=== PATIENT | female | born 1940 | race Caucasian/White ===

== ENCOUNTER 2016-05-01 08:56 | Emergency (ER) | payer MEDICARE, OTHER ==
[2016-05-01 09:09] VITALS: TEMP 97.4; BMI 19.9
[2016-05-01] MEDS ORDERED: PREDNISONE 20 MG TAB PO ONE (09:44)
[2016-05-01] MEDS ORDERED: RANITIDINE 150 MG TAB PO ONE (09:44)
[2016-05-01] MEDS ORDERED: OXYCODONE HCL 5 MG TABLET PO ONE (09:44)
--- NOTE | 2016-05-01 09:47 | EDPRACDOC ---
- General Information Chief Complaint: Neck Pain Stated Complaint: NECK PAIN Time Seen by Provider: 05/01/16 09:38 Information Source: Patient Home Medications: Home Medications Albuterol Sulfate [Proair Hfa] 2 puff INH Q6 PRN 09/30/15 Albuterol Sulfate [Ventolin Hfa] 2 puff INH QID PRN 09/30/15 Azelastine HCl [Astelin] 2 spray INTRANASAL QAM PRN 09/30/15 Calcium Carbonate/Vitamin D3 [Caltrate w/ Vit D Tab (600mg/400IU)] 1 tab PO BID 09/30/15 Cholecalciferol (Vitamin D3) [Vitamin D3] 10,000 unit PO DAILY 09/30/15 Donepezil HCl [Aricept] 10 mg PO HS 09/30/15 Glipizide/Metformin HCl [Glipizide-Metformin 2.5-500 mg] 2 tab PO BID 09/30/15 Losartan Potassium [Cozaar] 50 mg PO DAILY 09/30/15 Multivitamin [One Daily Multivitamin] 1 tab PO DAILY 09/30/15 Nitroglycerin [Nitrostat] 1 tab SL Q5MX3 PRN 09/30/15 [place]-3 Fatty Acids/Fish Oil [Fish Oil 1,000 mg Capsule] 1 cap PO DAILY Fluticasone Propionate [Flonase] 1 - 2 spray JOANN DAILY PRN 02/06/16 Rosuvastatin Calcium [Crestor] 5 mg PO DAILY 02/06/16 Sertraline HCl [Zoloft] 25 mg PO DAILY 02/06/16 Aspirin [Aspirin EC] 81 mg PO DAILY 05/01/16 Diazepam [Valium] 5 mg PO TID PRN #15 tablet 05/01/16 Dipyridamole/Aspirin 200/25 [Aggrenox] 1 cap PO BID 05/01/16 Oxycodone HCl/Acetaminophen [Percocet 5-325 mg Tablet] 1 tab PO Q6H PRN #20 tab 05/01/16 Prednisone [Deltasone] 40 mg PO DAILY #10 tablet 05/01/16 Ranitidine [Zantac] 150 mg PO BID #14 tablet 05/01/16 Tiotropium [place] [Spiriva Respimat] 2 puff INH DAILY 05/01/16 Allergies/Adverse Reactions: Allergies Allergy/AdvReac Type Severity Reaction Status Date / Time amoxicillin Allergy Diarrhea Verified 05/01/16 09:09 clopidogrel bisulfate Allergy Unknown Verified 05/01/16 09:09 [From Plavix] moxifloxacin HCl Allergy Unknown Verified 05/01/16 09:09 [From Avelox] tramadol Allergy See Verified 05/01/16 09:09 Comments - History of Present Illness Onset: 3 DAYS HPI: Pt c/o posterior neck pain with limited movement to R x 3 days. Pt c/o indigestion. Denies injury, fever, cough, congestion, sob, abd pain, n/v, rash, swelling. 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 Denies: Cancer Surgical History: Reports: Cardiac Catheterization, Tonsillectomy/Adnoidectomy - Family Medical History Reports: Hypertension (SISTER x2,BROTHER), Diabetes (SISTER x2, BROTHER x2,), Cancer (niece-pancreatic, sister-ovarian and pancreatic). Denies: Stroke ( sister), Cardiac Disorders - Social Medical History Smoking Status: Never smoker ETOH: None Substance Abuse: None EDM Review of Systems - Review of Systems Constitutional: No Symptoms Reported. negative: Fever, Chills, Weakness, Fatigue, Loss of Appetite Ears: No Symptoms Reported. negative: Pain, Hearing Loss, Drainage, Ear Pulling Throat: No Symptoms Reported. negative: Pain, Swelling Nose: No Symptoms Reported. negative: Congestion, Bleeding, Discharge, Injection, Swelling, Deformity, Ecchymosis, Tender, Abrasion, Laceration Mouth: No Symptoms Reported. negative: Pain, Drooling Respiratory: No Symptoms Reported. negative: Cough, Brassy Cough, Barky Cough, Shortness of Breath, Wheezing, Hemoptysis Cardiovascular: Chest Pain Gastrointestinal: No Symptoms Reported. negative: Pain, Constipation, Nausea, Vomiting, Diarrhea, Melena, Formula Intolerance Genitourinary: No Symptoms Reported. negative: Dysuria, Hematuria, Frequency, Discharge, Bleeding, Testicular Pain, Neurological: No Symptoms Reported. negative: Headache, Dizziness, Seizure, Numbness, Weakness, Speech Difficulty, Gait Difficulty Musculoskeletal: Neck Integumentary: No Symptoms Reported. negative: Itching, Rash, Bruising, Wound Allergic/Immunologic: No Symptoms Reported. negative: Hives, Itching Hematologic: No Symptoms Reported. negative: Lymphadenopathy, Easy Bruising, Easy Bleeding Psychiatric: No Symptoms Reported. negative: Anxiety, Depression, Hallucinations, Insomnia, Suicidal - Physical Exam Constitutional: Alert Oriented to: Time, Person, Place Last recorded Vital Signs: Last Vital Signs Temp 97.4 F L 05/01/16 09:05 Pulse 73 05/01/16 09:05 Resp 18 05/01/16 09:05 BP 122/66 05/01/16 09:05 Pulse Ox 95 05/01/16 09:05 Oxygen Pulse Oxygen Saturation 95 O2 Device Oxygen Flow Rate Fraction of Inspired Oxygen ( FIO2) - HEENT Head: Normal ( normocephalic) Eye Exam: Normal (PERRL, EOMI, Sclera white) Oropharynx: Normal (Pharynx:Moist without exudate,Gums-no swelling) Tympanic Membrane: Normal ENT EAC: Normal TMJ: Normal Nose: No Symptoms Reported (septum midline) Neck: Limited ROM (to R), Paraspinal Tenderness - Respiratory/Cardiovascular Respiratory: Normal - CTA (BBS clear to auscultation without adventitious sounds ) Cardiovascular: Normal (RRR without murmur, gallop or rub) - GI Auscultation: Normal (NABS) Palpation: Normal (Soft,No rebound or guarding, non distended) Tenderness: Non tender - Musculoskeletal Back: Normal (Non-Tender) Extremities: Normal (Normal tone, Pulses 2+ No cyanosis or edema, FROM) - Integumentary Skin: Normal, Warm, Dry Lymphatics: Normal (no adenopathy) - Neurologic Memory Impaired: Normal Motor Function: Normal (Normal tone, Pulses 2+ No cyanosis or edema, FROM) Mood Description: Normal Perception: Normal - Differential Diagnosis Cervical Muscle Spasm, Other (GERD, CA) - EKG EKG #1 EKG Time: 10:23 Rate: bpm: 64 Commodore: Normal Rhythm: NSR Block: None ST: Normal - Diagnostic Imaging Chest Image interpreted by: Radiologist IMPRESSION: No acute cardiopulmonary abnormality. - Additional Information Xray from 04/28/16 IMPRESSION: Diffuse multilevel degenerative change. 3 mm anterolisthesis C4 on C5 . Discussed with keegan Johnson to d/c home Decision Time to Discharge: 10:34 - Departure Disposition: Home Condition: Good Final Diagnosis: Torticollis GERD (gastroesophageal reflux disease) Qualifiers: Esophagitis presence: esophagitis presence not specified Qualified Code(s): K21.9 - Gastro-esophageal reflux disease without esophagitis Instructions: Spasmodic Torticollis (ED) Education/Counseling Given To: Patient, Family Member Education/Counseling Given Regarding: Diagnosis, Treatment, Follow Up Referrals: Mathieu Orellana MD [Primary Care Provider] - One Week Prescriptions: Diazepam [Valium] 5 mg PO TID PRN #15 tablet PRN Reason: Muscle Spasms Oxycodone HCl/Acetaminophen [Percocet 5-325 mg Tablet] 1 tab PO Q6H PRN #20 tab PRN Reason: Pain Prednisone [Deltasone] 40 mg PO DAILY #10 tablet Ranitidine [Zantac] 150 mg PO BID #14 tablet Additional Instructions: Return for worse or different symptoms.
--- NOTE | 2016-05-01 10:10 | DIRPT ---
CLINICAL DATA: 75-year-old female with epigastric pain and indigestion for 3 days. Initial encounter. EXAM: CHEST 2 VIEW COMPARISON: Chest radiographs 08/24/2014 and earlier. FINDINGS: Stable embolization coil pack at the anterior basal segment of the left lower lobe near the diaphragm. Lung volumes are stable and at the upper limits of normal. Normal cardiac size and mediastinal contours. No pneumothorax, pulmonary edema, pleural effusion or confluent pulmonary opacity. No pneumoperitoneum. Negative visible bowel gas pattern. Osteopenia. No acute osseous abnormality identified. Chronic postoperative changes to the right humeral head. IMPRESSION: No acute cardiopulmonary abnormality. Electronically Signed By: Mohamud Mckenzie M.D. On: 05/01/2016 10:07
[2016-05-01 10:44] VITALS: BP 130/75; PULSE 72
== END 2016-05-01 11:00 | disposition home or self-care (01) ==
LOC: ED 08:56
DX: M43.6 Torticollis (principal); K21.9 Gastro-esophageal reflux disease without esophagitis
CPT/HCPCS: 71020; 93005; 99283; A9270; J3490

== ENCOUNTER 2016-05-05 10:31 | Emergency (ER) | payer MEDICARE, OTHER ==
[2016-05-05 10:32] VITALS: BMI 19.9
[2016-05-05 10:41] VITALS: TEMP 97.7
[2016-05-05] MEDS ORDERED: GI COCKTAIL 30 ML DOSE PO ONE (11:53)
[2016-05-05] MEDS ORDERED: SODIUM CHLORIDE 0.9% 3 ML FLUSH FLUSH PRN (11:54)
--- NOTE | 2016-05-05 11:59 | EDPRACDOC ---
- General Information Chief Complaint: Chest Wall Pain Stated Complaint: UPPER RIB CAGE PAIN Time Seen by Provider: 05/05/16 11:14 Information Source: Patient Home Medications: Home Medications Albuterol Sulfate [Proair Hfa] 2 puff INH Q6 PRN 09/30/15 Azelastine HCl [Astelin] 2 spray INTRANASAL QAM PRN 09/30/15 Calcium Carbonate/Vitamin D3 [Caltrate w/ Vit D Tab (600mg/400IU)] 1 tab PO BID 09/30/15 Donepezil HCl [Aricept] 10 mg PO HS 09/30/15 Glipizide/Metformin HCl [Glipizide-Metformin 2.5-500 mg] 2 tab PO BID 09/30/15 Losartan Potassium [Cozaar] 50 mg PO DAILY 09/30/15 Multivitamin [One Daily Multivitamin] 1 tab PO DAILY 09/30/15 Nitroglycerin [Nitrostat] 1 tab SL Q5MX3 PRN 09/30/15 [place]-3 Fatty Acids/Fish Oil [Fish Oil 1,000 mg Capsule] 1 cap PO DAILY Fluticasone Propionate [Flonase] 1 spray JOANN BID PRN 02/06/16 Rosuvastatin Calcium [Crestor] 5 mg PO DAILY 02/06/16 Sertraline HCl [Zoloft] 25 mg PO DAILY 02/06/16 Aspirin [Aspirin EC] 81 mg PO DAILY 05/01/16 Diazepam [Valium] 5 mg PO TID PRN #15 tablet 05/01/16 Dipyridamole/Aspirin 200/25 [Aggrenox] 1 cap PO BID 05/01/16 Oxycodone HCl/Acetaminophen [Percocet 5-325 mg Tablet] 1 tab PO Q6H PRN #20 tab 05/01/16 Ranitidine [Zantac] 150 mg PO BID #14 tablet 05/01/16 Tiotropium [place] [Spiriva Respimat] 2 puff INH DAILY 05/01/16 Alendronate Sodium [Fosamax] 70 mg PO .WEEKLY 05/05/16 Cholecalciferol (Vitamin D3) [Vitamin D3] 1,000 unit PO DAILY 05/05/16 Eluxadoline [Viberzi] 100 mg PO BID PRN 05/05/16 Esomeprazole Mag Trihydrate [Nexium] 40 mg PO DAILY 05/05/16 Tizanidine HCl [Zanaflex] 4 mg PO TID PRN 05/05/16 Tramadol HCl [Ultram] 50 mg PO QID PRN 05/05/16 Allergies/Adverse Reactions: Allergies Allergy/AdvReac Type Severity Reaction Status Date / Time amoxicillin Allergy Diarrhea Verified 05/05/16 10:38 clopidogrel bisulfate Allergy Unknown Verified 05/05/16 10:38 [From Plavix] moxifloxacin HCl Allergy Unknown Verified 05/05/16 10:38 [From Avelox] tramadol Allergy See Verified 05/05/16 10:38 Comments - History of Present Illness Onset: Wednesday HPI: PT PRESENTS TO THE ED WITH PAINFUL SWALLOWING FOR 2-3 WEEKS STATES SHE IS UNABLE TO TAKE HER MEDICATIONS AND IS UNABLE TO EAT ANYTHING B/C HURTS WHEN SHE SWALLOWS STATES SHE IS ABLE TO DRINK LIQUIDS BUT THEY ARE PAINFUL WELL. PT C/ O FEELING LIKE SOMETHING IS BLOCK HER ESOPHAGUS AND MAKING IT HARD TO SWALLOW. Sore Throat Symptoms: Reports: Pain, Other (UNABLE TO TAKE MEDS OR SWALLOW FOOD. ABLE TO SWALLOW LIQUID BUT PAINFUL) Recent: Reports: None Relevant History of: Reports: None Pain Severity: Reports: Moderate Urinary Output: Normal Oral Intake: Decreased Associated Signs and Symptoms: Reports: None ED Past Medical History - History Reviewed Yes Nurses notes reviewed and agree except as marked Travel Outside of [place] in the Last 3 Months?: No - Patient Medical History Neurological History: Reports: Cerebrovascular Accident (HEMMORRHAGIC 2009), Dementia Cardiac History: Reports: Coronary Artery Disease, Hypertension (BENIGN ESSENTIAL), Cardiac Catheterization Respiratory History: Reports: Asthma GI/ History: Reports: Gastroesophageal Reflux Psychological History: Reports: Depression Systemic History: Reports: Diabetes. Denies: Cancer Surgical History: Reports: Cardiac Catheterization, Tonsillectomy/Adnoidectomy - Family Medical History Reports: Hypertension (SISTER x2,BROTHER), Diabetes (SISTER x2, BROTHER x2,), Cancer (niece-pancreatic, sister-ovarian and pancreatic). Denies: Stroke ( sister), Cardiac Disorders - Social Medical History Smoking Status: Never smoker ETOH: None Substance Abuse: None Lives With: Spouse Lives In: Home EDM Review of Systems - Review of Systems ROS Negative Except as Marked: Yes All systems reviewed and were negative except as marked Constitutional: No Symptoms Reported. negative: Fever, Chills, Weakness, Fatigue, Loss of Appetite Eyes: No Symptoms Reported. negative: Redness, Blurred Vision, Double Vision, Discharge, Pain, Light Sensitive, Photophobia Ears: No Symptoms Reported. negative: Pain, Hearing Loss, Drainage, Ear Pulling Throat: Pain, Other (TROUBLE SWALLOWING). negative: Swelling Nose: No Symptoms Reported. negative: Congestion, Bleeding, Discharge, Injection, Swelling, Deformity, Ecchymosis, Tender, Abrasion, Laceration Mouth: No Symptoms Reported. negative: Pain, Drooling Respiratory: No Symptoms Reported. negative: Cough, Brassy Cough, Barky Cough, Shortness of Breath, Wheezing, Hemoptysis Cardiovascular: No Symptoms Reported. negative: Chest Pain, Palpitations, Syncope, Edema, Orthopnea, PND, Skin Mottling, Cyanosis Gastrointestinal: No Symptoms Reported. negative: Pain, Constipation, Nausea, Vomiting, Diarrhea, Melena, Formula Intolerance Genitourinary: No Symptoms Reported. negative: Dysuria, Hematuria, Frequency, Discharge, Bleeding, Testicular Pain, Neurological: No Symptoms Reported. negative: Headache, Dizziness, Seizure, Numbness, Weakness, Speech Difficulty, Gait Difficulty Musculoskeletal: No Symptoms Reported. negative: Neck, Chestwall, Ribs, Back, Shoulder, Arm, Elbow, Forearm, Wrist, Hand, Pelvis, Hip, Femur, Knee, Leg, Ankle , Foot Integumentary: No Symptoms Reported. negative: Itching, Rash, Bruising, Wound Allergic/Immunologic: No Symptoms Reported. negative: Hives, Itching Hematologic: No Symptoms Reported. negative: Lymphadenopathy, Easy Bruising, Easy Bleeding Endocrine: No Symptoms Reported. negative: Weight Gain, Weight Loss Psychiatric: No Symptoms Reported. negative: Anxiety, Depression, Hallucinations, Insomnia, Suicidal - Physical Exam Constitutional: No apparent distress, Alert (Awake) Oriented to: Time, Person, Place Last recorded Vital Signs: Last Vital Signs Temp 97.7 F 05/05/16 10:38 Pulse 89 05/05/16 10:38 Resp 18 05/05/16 10:38 BP 132/84 05/05/16 10:38 Pulse Ox 96 05/05/16 10:38 Oxygen Pulse Oxygen Saturation 96 O2 Device Room Air Oxygen Flow Rate Fraction of Inspired Oxygen ( FIO2) - HEENT Head: Normal ( normocephalic) Eye Exam: Normal (PERRL, EOMI, Sclera white) Oropharynx: Normal (Pharynx:Moist without exudate,Gums-no swelling) Tympanic Membrane: Normal ENT EAC: Normal TMJ: Normal Nose: No Symptoms Reported (septum midline) Neck: Other (PAINFUL SWALLOWING) - Respiratory/Cardiovascular Respiratory: Normal - CTA (BBS clear to auscultation without adventitious sounds ) Cardiovascular: Normal (RRR without murmur, gallop or rub) - GI Auscultation: Normal (NABS) Palpation: Normal (Soft,No rebound or guarding, non distended) Tenderness: Non tender Greenwood's Sign: Negative - Bladder: Normal - Musculoskeletal Back: Normal (Non-Tender) Extremities: Normal (Normal tone, Pulses 2+ No cyanosis or edema, FROM) - Integumentary Skin: Normal, Warm, Dry Lymphatics: Normal (no adenopathy) - Neurologic Memory Impaired: Normal Motor Function: Normal (Normal tone, Pulses 2+ No cyanosis or edema, FROM) Cranial Nerve: Normal (CN II-X11 intact sensation, strength 5/5) Cerebellar: Normal Mood Description: Normal Perception: Normal - Differential Diagnosis Other (DYSPHAGIA, ESOPHAGEAL STRICTURES/MASS) - Results 05/05/16 12:05 05/05/16 12:05 - Diagnostic Imaging CT NECK Image interpreted by: Radiologist COMPARISON: None. FINDINGS: Pharynx and larynx: No oral pharyngeal or laryngeal masses. The mucosal space is unremarkable with no significant asymmetry. The hypopharynx is unremarkable. Visualization of the upper thoracic and cervical esophagus shows no evidence of a mass. Salivary glands: Major salivary glands are unremarkable. Thyroid: Normal thyroid gland. Lymph nodes: No adenopathy. Vascular: Unremarkable. No significant atherosclerotic plaque along the extracranial carotid arteries. Limited intracranial: Evidence of a old right occipital infarct, incompletely imaged. Ventricular enlargement consistent with atrophy. Visualized orbits: Findings consistent with bilateral cataract surgery. Otherwise unremarkable. Mastoids and visualized paranasal sinuses: Clear Skeleton: Degenerative changes along the cervical spine with loss of disc height and small endplate osteophytes. Bones are demineralized. No osteoblastic or osteolytic lesions. Upper chest: No upper mediastinal masses or adenopathy. Visualized upper lungs are clear. IMPRESSION: 1. There are no CT findings to account for this patient's symptoms. No evidence of a mass or bowel foreign body obstruction to the visualized upper esophagus. 2. No mucosal masses or significant asymmetry. No evidence of malignancy. No adenopathy. No inflammatory changes. - Additional Information PT STATES HS APPT ON 05/15/[address] MOLINA, WILL CALL TO SEE IF OFFICE CAN MOVE APPT UP TO SOONER DATE. Decision Time to Discharge: 14:18 - Departure Disposition: Home Condition: Stable Final Diagnosis: Dysphagia Qualifiers: Dysphagia type: unspecified Qualified Code(s): R13.10 - Dysphagia, unspecified Instructions: Dysphagia (ED) Education/Counseling Given To: Patient Education/Counseling Given Regarding: Diagnosis, Treatment, Prognosis, Follow Up Referrals: Mathieu Orellana MD [Primary Care Provider] - One Week Zev Molina MD [Staff Provider No Admit] - One Week Additional Instructions: PLEASE PRESENT TO DR. MOLINA'S OFFICE WEDNESDAY AT 815 AM.
[2016-05-05] MEDS ORDERED: Pharmacy Review for Metformin - IV Contrast Given SCH (12:00)
[2016-05-05 12:16] LABS: AUTOMATED BASOPHIL 0.5 % (0-2); AUTOMATED EOSINOPHIL 1.3 % (0-5); AUTOMATED LYMPH 26.1 % (17-44); AUTOMATED MONOCYTE 10.5 % (3-10); AUTOMATED NEUTROPHIL 61.6 % (45-76); MPV 6.9 fL (7.4-10.4)
[2016-05-05 12:45] LABS: BLOOD UREA NITROGEN 12 MG/DL (7-17); CALC CORRECTED 9.7 MG/DL (8.4-10.2); CALCIUM 9.4 MG/DL (8.4-10.2); CALCULATED OSMOLALITY 270 MOs/Kg (270-290); CHLORIDE 102 mEq/L (98-107); GLUCOSE 141 MG/DL (70-99); SODIUM LEVEL 139 mEq/L (137-146); TOTAL PROTEIN 7.1 G/DL (6.3-8.2)
--- NOTE | 2016-05-05 13:24 | DIRPT ---
CLINICAL DATA: Patient presents with painful swallowing. Feels like there is a blockage in the neck region. Symptoms for 2-3 weeks. EXAM: CT NECK WITH CONTRAST TECHNIQUE: Multidetector CT imaging of the neck was performed using the standard protocol following the bolus administration of intravenous contrast. CONTRAST: 80 mL of Isovue 370 intravenous contrast COMPARISON: None. FINDINGS: Pharynx and larynx: No oral pharyngeal or laryngeal masses. The mucosal space is unremarkable with no significant asymmetry. The hypopharynx is unremarkable. Visualization of the upper thoracic and cervical esophagus shows no evidence of a mass. Salivary glands: Major salivary glands are unremarkable. Thyroid: Normal thyroid gland. Lymph nodes: No adenopathy. Vascular: Unremarkable. No significant atherosclerotic plaque along the extracranial carotid arteries. Limited intracranial: Evidence of a old right occipital infarct, incompletely imaged. Ventricular enlargement consistent with atrophy. Visualized orbits: Findings consistent with bilateral cataract surgery. Otherwise unremarkable. Mastoids and visualized paranasal sinuses: Clear Skeleton: Degenerative changes along the cervical spine with loss of disc height and small endplate osteophytes. Bones are demineralized. No osteoblastic or osteolytic lesions. Upper chest: No upper mediastinal masses or adenopathy. Visualized upper lungs are clear. IMPRESSION: 1. There are no CT findings to account for this patient's symptoms. No evidence of a mass or bowel foreign body obstruction to the visualized upper esophagus. 2. No mucosal masses or significant asymmetry. No evidence of malignancy. No adenopathy. No inflammatory changes. Electronically Signed By: Kirk Christy M.D. On: 05/05/2016 13:22
[2016-05-05 14:38] VITALS: BP 140/76; PULSE 75
[2016-05-05] MEDS ORDERED: SODIUM CHLORIDE 0.9% 3 ML FLUSH FLUSH SCH (18:00)
== END 2016-05-05 14:38 | disposition home or self-care (01) ==
LOC: ED 10:31
DX: R13.10 Dysphagia, unspecified (principal); R07.89 Other chest pain
CPT/HCPCS: 36415; 70491; 80053; 85025; 99284; A9270; A9698; J3490